=== PATIENT | female | born 1980 | race Hispanic/Latino ===

== ENCOUNTER 2019-10-18 22:44 | Emergency (ER) | payer OTHER ==
[~2019-10-18] VITALS: Ht 162.6 cm; Wt 117.9 kg
--- NOTE | 2019-10-18 23:04 | Emergency Department Note ---
History of Present Illnes History of Present Illness History of Present Illness This is a 39 year old female . Historian: Patient Arrival Mode: Car Social Media Assistant Required: No Onset (how long ago): day(s) (5 days ago started with cough, congestion, no fever, has had loss of taste and smell had COVID PCR last no hx of CAD, DVT or PE no hx of travel BCP's leg pain or leg swelling) Location: chest pain, cough non productive COVID exposure loss of taste and smell Radiation: Reports non-radiation Severity: moderate Onset quality: gradual Duration (how long): day(s) (5) Progression: unchanged Chronicity: new Context: Reports recent illness Relieving factors: none Exacerbating factors: none Associated symptoms: Reports chest pain, Reports cough, Reports shortness of breath; Denies fever/chills Treatments prior to arrival: none Past Medical/Family History Physician Review I have reviewed the patient's past medical and family history. Any updates have been documented here. Past Medical History Recent Fever: Yes Clinical Suspicion of Infectio: No New/Unexplained Change in Ment: No Past Medical History: Asthma, Anxiety Past Surgical History: Cholecysctectomy Social History Smoking Cessation: Never Smoker Alcohol Use: None Review of Systems Review of Systems Constitutional: Reports malaise, Reports weakness; Denies chills, Denies fever EENTM: Reports nose congestion Cardiovascular: Reports chest pain Respiratory: Reports chest congestion, Reports cough Review of other systems: All other systems negative Physical Exam Related Data Allergies: Coded Allergies: Penicillins (Verified Allergy, Intermediate, 10/18/19) Vital signs reviewed: Yes Physical Exam CONSTITUTIONAL Constitutional: Present well-developed, Present well-nourished HENT HENT: Present normocephalic EYES Eyes: Reports conjunctivae normal NECK Neck: Present supple PULMONARY Pulmonary: Present effort normal, Present breath sounds normal; Absent respiratory distress, Absent rhonchi CARDIOVASCULAR Cardiovascular: Present tachycardia GASTROINTESTINAL Abdominal: Present soft GENITOURINARY Genitourinary: Absent exam deferred SKIN Skin: Present warm MUSCULOSKELETAL NEUROLOGICAL Neurological: Present alert PSYCHOLOGICAL Psychological: Present mood/affect normal Results Laboratory Lab results reviewed: Yes Laboratory comments CBC Normal except H/H 10.6/34.4 UPT neg Imaging Imaging results reviewed: Yes Impressions atient Name: AJAY CASIANO MR #: [id number] : 1980 Age/Sex: 39/F Req #: [id number] Adm Physician: Ordered by: ZOYA RANGEL MD Report #: [id number] Location: [facility] Room/Bed: Procedure: [id number] HOPD/CXR 1 VEW - HOPD Exam Date: 10/19/19 Exam Time: 0005 REPORT STATUS: Signed EXAMINATION: CXR 1 VEW - HOPD INDICATION: Chest pain, short of breath, coughing, generalized pain, 5 days COMPARISON: None FINDINGS: TUBES and LINES: None. LUNGS: Normal lung volumes. Subtle bilateral lower lung haziness. PLEURA: No pleural effusion or pneumothorax. HEART AND MEDIASTINUM: The cardiomediastinal silhouette is unremarkable. BONES AND SOFT TISSUES: No acute osseous lesion. Soft tissues are unremarkable. UPPER ABDOMEN: No free air under the diaphragm. IMPRESSION: Subtle bilateral lower lung haziness can be due to atelectasis or pneumonia, although sensitivity/specificity of lung evaluation is limited due to AP portable technique and patient body habitus. Signed by: Antolin Wyatt DO on 10/19/2019 1:11 AM Dictated By: ANTOLIN WYATT DO 0 Transcribed By: TOMMY on 10/19/19110 COPY TO: ZOYA RANGEL MD~ Procedures 12 Lead ECG Interpretation ECG Interpretation : ECG: ECG 1 Date: Oct 19, 2019 Prior ECG tracings: reviewed Rhythm: sinus tachycardia Rate: tachycardia QRS axis: normal ST segments normal: Yes T waves normal: Yes Clinical Impression: normal ECG Assessment & Plan Medical Decision Making MDM ACS, Bronchitis, PNA, COVID PNA, PE, PTX Assessment & Plan Final Impression: (1) Chest pain (2) Bronchitis (3) Exposure to COVID-19 virus (4) Pneumonia Depart Disposition: HOME, SELF-senior living Meds Active Scripts Benzonatate (TESSALON PERLE) 100 Mg Capsule, 100 MG PO TID PRN for COUGH for 5 Days, #15 Prov:ZOYA RANGEL MD 10/18/19 Azithromycin (Z-NERY) 250 Mg Tablet, 500 MG PO 5 DAY PACK DIRECT, #1 Prov:ZOYA RANGEL MD 10/18/19 ZOYA RANGEL MD Oct 18, 2019 23:04
[2019-10-18] MEDS ORDERED: TESSALON PERLE100 MG PO (23:23)
[2019-10-18] MEDS ORDERED: AZITHROMYCIN250 MG PO (23:23)
[2019-10-19 00:37] VITALS: BP 143/71
--- NOTE | 2019-10-19 01:14 | Diagnostic Imaging Report ---
EXAMINATION: CXR 1 [facility] INDICATION: Chest pain, short of breath, coughing, generalized pain, 5 days COMPARISON: None FINDINGS: TUBES and LINES: None. LUNGS: Normal lung volumes. Subtle bilateral lower lung haziness. PLEURA: No pleural effusion or pneumothorax. HEART AND MEDIASTINUM: The cardiomediastinal silhouette is unremarkable. BONES AND SOFT TISSUES: No acute osseous lesion. Soft tissues are unremarkable. UPPER ABDOMEN: No free air under the diaphragm. IMPRESSION: Subtle bilateral lower lung haziness can be due to atelectasis or pneumonia, although sensitivity/specificity of lung evaluation is limited due to AP portable technique and patient body habitus. Signed by: Antolin Wyatt DO on 10/19/2019 1:11 AM
== END 2019-10-19 01:27 | disposition home or self-care (01) ==
LOC: FSED 22:44
DX: R05 Cough (principal); R07.9 Chest pain, unspecified; J18.9 Pneumonia, unspecified organism; J40 Bronchitis, not specified as acute or chronic; Z20.828 Contact with and (suspected) exposure to other viral communicable diseases; F41.9 Anxiety disorder, unspecified
CPT/HCPCS: 71045; 80048; 80076; 81025; 84484; 85025; 93005; 99284